=== PATIENT | male | born 1995 | race Caucasian/White ===

== ENCOUNTER 2016-08-26 07:54 | Emergency (ER) | payer OTHER ==
[~2016-08-26] VITALS: Ht 188 cm; Wt 136.0 kg
[2016-08-26 08:08] VITALS: BP 183/100; PULSE 76; RESP 20; TEMP 98.3; O2SAT 95
[2016-08-26 08:50] LABS: AUTOMATED NEUTROPHIL # 10.6 TH/MM3 (1.8-7.7); BASOPHIL % 0.2 % (0.0-2.0); EOSINOPHIL # 0.1 TH/MM3 (0-0.4); EOSINOPHIL % 0.6 % (0.0-4.0); HEMATOCRIT 47.8 % (39.0-51.0); HEMO FLAGS DIFF FINAL; LYMPHOCYTE # 2.2 TH/MM3 (1.0-4.8); MEAN CELL VOLUME 85.5 FL (80.0-100.0); MEAN CORPUSCULAR HEMOGLOBIN 29.8 PG (27.0-34.0); MEAN CORPUSCULAR HGB CONC 34.9 % (32.0-36.0); MONO % 7.4 % (0.0-8.0); NEUT % 75.8 % (16.0-70.0); PLATELET COUNT 301 TH/MM3 (150-450); RED CELL DISTRIBUTION WIDTH 12.4 % (11.6-17.2)
[2016-08-26 09:01] LABS: ANION GAP 8 MEQ/L (5-15); AST (GOT) 9 U/L (15-37); BICARBONATE 26.3 MEQ/L (21.0-32.0); BLOOD UREA NITROGEN 11 MG/DL (7-18); CHLORIDE 104 MEQ/L (98-107); GLOMERULAR FILTRATION RATE 98 ML/MIN (>89); POTASSIUM 3.7 MEQ/L (3.5-5.1); SODIUM (NA) 138 MEQ/L (136-145)
[2016-08-26 09:04] LABS: ALKALINE PHOSPHATASE 102 U/L (45-117); ALT (GPT) 28 U/L (12-78); TOTAL BILIRUBIN ADULT 0.7 MG/DL (0.2-1.0)
[2016-08-26 09:05] LABS: ACETAMINOPHEN LESS THAN 2.0 MCG/ML (10.0-30.0)
--- NOTE | 2016-08-26 09:44 | PD ---
HPI Chief Complaint: OD/ Ingestion Time Seen by Provider: 08:11 Travel History International Travel<30 days: No Contact w/Intl Traveler<30days: No Traveled to known affect area: No History of Present Illness HPI This is a 21-year-old male who presents to the emergency department having intentionally overdosed on Tylenol PM, NyQuil and Lortab. He said he took an entire box of NyQuil an entire box of Tylenol PM last evening and then this morning took several Lortab pills. He is not sure how many he took. He was trying to kill himself. Right now he feels sleepy and depressed. He denies any other complaints. PFSH Past Medical History Diminished Hearing: No Hypertension: Yes Past Surgical History Tonsillectomy: Yes Social History Alcohol Use: Yes (WEEKLY) Tobacco Use: Yes (2PPD) Substance Use: Yes (XANAX, COCAINE, CANNABIS) Allergies-Medications (Allergen,Severity, Reaction): Coded Allergies: No Known Allergies (Unverified , 08/26/16) Reported Meds & Prescriptions Reported Meds & Active Scripts Active No Active Prescriptions or Reported Medications Review of Systems Except as stated in HPI: all other systems reviewed are Neg Physical Exam Narrative GENERAL:Well appearing, no acute distress SKIN: Warm and dry. HEAD: Atraumatic. Normocephalic. EYES: Pupils dilated, equal and reactive no injection or drainage. ENT: Moist mucous membranes NECK: Trachea midline. CARDIOVASCULAR: Regular rate and rhythm. No murmur appreciated. RESPIRATORY: Clear to auscultation. Breath sounds equal bilaterally. GASTROINTESTINAL: Abdomen soft, non-tender, nondistended. MUSCULOSKELETAL: No obvious deformities. NEUROLOGICAL: Awake and alert. No obvious cranial nerve deficits. Moving all extremities. PSYCHIATRIC: Appropriate mood and affect; insight and judgment normal. Data Data Last Documented VS Vital Signs Date Time Temp Pulse Resp B/P Pulse Ox O2 Delivery O2 Flow Rate FiO2 08/26/16 08:08 98.3 76 20 183/100 95 Orders Complete Blood Count With Diff (08/26/16 08:12) Comprehensive Metabolic Panel (08/26/16 08:12) Drug Screen, Random Urine (08/26/16 08:12) Alcohol (Ethanol) (08/26/16 08:12) Salicylates (Aspirin) (08/26/16 08:12) Tylenol (Acetaminophen) (08/26/16 08:12) Psych Screen (08/26/16 08:12) Electrocardiogram (08/26/16 ) Labs Laboratory Tests Test 08/26/16 08:30 White Blood Count 14.0 TH/MM3 Red Blood Count 5.60 MIL/MM3 Hemoglobin 16.7 GM/DL Hematocrit 47.8 % Mean Corpuscular Volume 85.5 FL Mean Corpuscular Hemoglobin 29.8 PG Mean Corpuscular Hemoglobin 34.9 % Concent Red Cell Distribution Width 12.4 % Platelet Count 301 TH/MM3 Mean Platelet Volume 8.1 FL Neutrophils (%) (Auto) 75.8 % Lymphocytes (%) (Auto) 16.0 % Monocytes (%) (Auto) 7.4 % Eosinophils (%) (Auto) 0.6 % Basophils (%) (Auto) 0.2 % Neutrophils # (Auto) 10.6 TH/MM3 Lymphocytes # (Auto) 2.2 TH/MM3 Monocytes # (Auto) 1.0 TH/MM3 Eosinophils # (Auto) 0.1 TH/MM3 Basophils # (Auto) 0.0 TH/MM3 CBC Comment DIFF FINAL Differential Comment Sodium Level 138 MEQ/L Potassium Level 3.7 MEQ/L Chloride Level 104 MEQ/L Carbon Dioxide Level 26.3 MEQ/L Anion Gap 8 MEQ/L Blood Urea Nitrogen 11 MG/DL Creatinine 0.95 MG/DL Estimat Glomerular Filtration 98 ML/MIN Rate Random Glucose 87 MG/DL Calcium Level 9.0 MG/DL Total Bilirubin 0.7 MG/DL Aspartate Amino Transf 9 U/L (AST/SGOT) Alanine Aminotransferase 28 U/L (ALT/SGPT) Alkaline Phosphatase 102 U/L Total Protein 8.2 GM/DL Albumin 4.3 GM/DL Salicylates Level 2.3 MG/DL Acetaminophen Level LESS THAN 2.0 MCG/ML Ethyl Alcohol Level LESS THAN 3 MG/DL MDM Medical Decision Making Medical Screen Exam Complete: Yes Emergency Medical Condition: Yes Interpretation(s) Afebrile, no tachycardia, hypertensive Leukocytosis Electrolytes within normal limits Salicylates are 2.3 Acetaminophen is less than 2 Alcohol is less than 3 Differential Diagnosis Acetaminophen overdose, salicylate overdose, anticholinergic toxicity, dehydration Narrative Course This is a 21-year-old male who presents to the emergency department having had an intentional overdose of Tylenol PM, NyQuil and Lortab. Patient is very well- appearing on exam. He was placed on a monitor and an IV was established. Acetaminophen level was negative which is surprising given the patient reports an ingestion of Tylenol PM last evening. Tylenol level will be repeated in 4 hours. Otherwise I think patient will be clear for psychiatric evaluation. Scripts No Active Prescriptions or Reported Meds Suzy yTler MD Aug 26, 2016 09:44
--- NOTE | 2016-08-26 12:25 | EKG ---
Date Performed: 08/26/2016 Time Performed: 08:16:30 PTAGE: 21 years EKG: Sinus rhythm NORMAL ECG INTERPRETATION BASED ON A DEFAULT AGE OF 38 YEARS NO PREVIOUS TRACING DOCTOR: Jorge Garcia Interpretating Date/Time 08/26/2016 12:21:55
[2016-08-26 13:09] VITALS: BP 169/111; PULSE 67; RESP 20; O2SAT 94
[2016-08-26 13:23] LABS: AMPHETAMINE, URINE NEG (NEG); BARBITURATES, URINE NEG (NEG); COCAINE, URINE POS (NEG)
[2016-08-26 17:12] VITALS: BP 151/106; PULSE 63; RESP 20; TEMP 98.2; O2SAT 94
[2016-08-26 23:10] VITALS: BP 150/74; PULSE 73; RESP 18; TEMP 97.5; O2SAT 98
== END 2016-08-27 01:15 ==
LOC: NEPE 07:54 → NEPJ 08-27 01:15
DX: T39.1X2A Poisoning by 4-Aminophenol derivatives, intentional self-harm, initial encounter (principal); I10 Essential (primary) hypertension; F17.210 Nicotine dependence, cigarettes, uncomplicated; F12.90 Cannabis use, unspecified, uncomplicated; F14.90 Cocaine use, unspecified, uncomplicated; F15.90 Other stimulant use, unspecified, uncomplicated
CPT/HCPCS: 80053; 80307; 80320; 80329; 85025; 93005; G0480